=== PATIENT | female | born 2000 | race Two or more races ===

== ENCOUNTER 2020-07-08 08:19 | Outpatient (REF) | payer OTHER, SELFPAY | END 2020-07-08 08:20 | disposition home or self-care (01) | LOC: HO.LAB 08:19 | PROVIDERS: Visit Provider Internal Medicine | DX: Z20.828 Contact with and (suspected) exposure to other viral communicable diseases (principal) | CPT/HCPCS: C9803; U0003 ==

== ENCOUNTER 2021-08-04 20:32 | Emergency (ER) | payer OTHER, SELFPAY ==
[2021-08-04 21:42] VITALS: BP 138/79; PULSE 101; RESP 16; TEMP 36.8; O2SAT 99; BMI 46.3
[2021-08-04 22:01] LABS: COVID-19 Test Positive (Negative)
[2021-08-04 22:12] LABS: Appearance Urine CLEAR; Color Urine YELLOW; Glucose Urine UA NEG (NEG); Leukocyte Esterase Urine NEG (NEG); Nitrite Urine NEG (NEG); Specific Gravity - Urine >= 1.030 (1.005-1.025); UACC Culture Trigger NO; Urine Blood NEG (NEG); Urine Ketones NEG (NEG); Urine Protein 1+ MG/DL (NEG-TRACE)
[2021-08-04 22:14] LABS: UPreg QC Valid YES; Urine Pregnancy NEGATIVE (NEGATIVE)
[2021-08-04 22:22] LABS: Bacteria Urine 1+ /LPF; RBC Urine 0-2 /HPF (0); Squamous Epithelial Cell Urine 2+ /LPF; WBC Urine 0 /HPF (0-4)
--- NOTE | 2021-08-04 23:56 | ED_ITS ---
HPI - General Adult General Chief complaint: General Medical Stated complaint: Covid symptoms Time Seen by Provider: 08/04/21 23:46 Source: patient Limitations: no limitations History of Present Illness HPI narrative: this is a 21-year-old female who since yesterday has had symptoms consistent with COVID a, including headache, nasal congestion, sore throat, cough, nausea, body aches. Patient has been immunized with the Pfizer vaccine x2. She denies any shortness of breath pressures at home with her partner and child, although she is having her child stay with relative while she is sick. Patient denies any significant past medical history. She denies abdominal pain or urinary symptoms. Related Data Previous Rx's Medication Instructions Recorded ondansetron 4 mg disintegrating 4 mg PO Q6H PRN #10 tab 08/04/21 tablet Allergies Allergy/AdvReac Type Severity Reaction Status Date / Time No Known Allergies Allergy Unverified 04/22/20 19:18 [No Known Allergies*] Review of Systems Constitutional: Constitutional: Reports body ache(s), Reports chills and Reports headache(s) ENT: Reports headache(s), Reports nasal congestion and Reports sore throat Cardiovascular: Cardiovascular: Reports no additional cardiovascular complaints and Denies dyspnea Respiratory: Respiratory: Reports cough and Denies dyspnea Gastrointestinal: Gastrointestinal: Denies diarrhea, Reports nausea and Denies vomiting Genitourinary: Genitourinary: Reports no additional female genitourinary complaints Musculoskeletal: Musculoskeletal: Reports myalgias Neurologic: Reports headache(s) and Denies Sensory deficit (Neuro) [facility] Past Medical History Medical History (Updated 08/04/21 @ 23:56 by Ken Verdugo MD) Anemia PCOS (polycystic ovarian syndrome) Social History Social History Advance Directives: No Physical Exam Vital Signs: Vital Signs: Last Vital Signs Temp 98.2 F 08/04/21 21:42 Pulse 101 H 08/04/21 21:42 Resp 16 08/04/21 21:42 BP 138/79 08/04/21 21:42 Pulse Ox 99 08/04/21 21:42 BMI result Body Mass Index 46.3 Const: General: cooperative, no acute distress and alert Orientation/consciousness: patient oriented x3 HENMT: Head: Yes normal to inspection Eyes: General: appearance normal, both eyes and all related structures Eyelids: Yes eyelids normal Conjunctivae: conjunctivae normal Pupils: Equal, round and reactive pupils present Neck: Neck: Yes normal visual inspection and Yes supple Chest: Chest palpation & inspection: normal inspection of the chest Resp: Effort & Inspection: normal respiratory effort Auscultation: clear to auscultation bilaterally Cardio: Rate: regular rate Rhythm: regular rhythm Heart sounds: S1 normal heart sound present, S2 normal heart sound present, no gallops, no m urmurs and no rubs GI: Palpation (GI): Soft to palpation, nontender and Other GI palpation findings present (Non-distended) Auscultation: normal bowel sounds Skin: General skin exam: no rashes or lesions noted Neuro: General: patient oriented x3, no focal motor deficits and CN's II-XI intact bilaterally Cranial nerves: Yes Equal, round and reactive pupils present Cognition (Neuro): normal cognition Motor exam (neuro): 5/5 motor strength present throughout Sensory Exam: No Sensory deficit (Neuro) Extrem: General: Yes normal to inspection and Yes no pedal edema Psych: Appearance: grossly normal Affect: normal affect Medical Decision Making [facility] Narrative Medical decision making narrative: Patient with COVID symptoms, is COVID positive. Patient not ill-appearing. Pulse oximetry normal. Patient moderately obese but has had to Pfizer vaccinations, which hopefully will attenuate the severity of her illness. Lab Data Lab results reviewed: Yes I reviewed the patient's lab results. Labs: Lab Results 08/04/21 08/04/21 08/04/21 Range/Units 21:49 22:04 22:04 Urine Color YELLOW Urine Appearance CLEAR Urine pH 6.0 (5.0-8.0) Ur Specific [place] >= 1.030 H (1.005-1.025) Urine Protein 1+ H (NEG-TRACE) MG/DL Urine Glucose (UA) NEG (NEG) MG/DL Urine Ketones NEG (NEG) MG/DL Urine Blood NEG (NEG) Urine Nitrite NEG (NEG) Ur Leukocyte Esterase NEG (NEG) Urine RBC 0-2 (0) /HPF Urine WBC 0 (0-4) /HPF Ur Squamous Epith Cells 2+ /LPF Urine Bacteria 1+ /LPF Urine Test NEGATIVE (NEGATIVE) COVID-19 ([facility]) Positive A (Negative) COVID-19 Clin Com See Note Discharge Plan Discharge Clinical Impression: COVID-19 Patient Disposition: Home, Self-Care Instructions: COVID-19 (Coronavirus Disease 2019) (ED) Additional Instructions: Drink plenty of fluids. Use ondansetron as prescribed for nausea. Quarantine at home for 10 days. Have other family members tested. Return for any worsened symptoms such as increased shortness of breath, fever, generalized weakness, inability to hold down fluids. Use acetaminophen for aches or fever Prescriptions: New ondansetron 4 mg tablet,disintegrating 4 mg PO Q6H PRN (Reason: nausea and vomiting) Qty: 10 RF: 0
[2021-08-05] MEDS: Ondansetron ODT 4 MG TAB.RAPDIS TRANSLINGU (00:37)
== END 2021-08-05 00:44 | disposition home or self-care (01) ==
PROVIDERS: Emergency Provider Emergency Medicine
DX: U07.1 COVID-19 (principal); J02.9 Acute pharyngitis, unspecified; R51.9 Headache, unspecified; Z79.899 Other long term (current) drug therapy
CPT/HCPCS: 36415; 81001; 81025; 87635; 99283

== ENCOUNTER 2021-10-04 09:34 | Emergency (ER) | payer OTHER, SELFPAY ==
--- NOTE | ~2021-10-04 | CT_ITS ---
EXAMINATION: CT ABDOMEN AND PELVIS WITH CONTRAST CLINICAL INFORMATION: Abdominal pain and diarrhea COMPARISON: None TECHNIQUE: Multidetector volumetric images were obtained from the superior aspect of the liver through the pubic symphysis following administration 85 mL of Omnipaque 350 intravenous contrast. Sagittal and coronal reformatted images were obtained on the technologist's workstation. Oral contrast: Yes This CT examination was performed using dose optimization techniques as appropriate, variously including the following: *Automated exposure control *Adjustment of mA and/or kV according to patient size (this includes techniques or standardized protocols for targeted exams where dose is matched to indication/reason for exam; i.e. extremities or head) *Use of iterative reconstruction technique DLP: 1169 mGy-cm FINDINGS: LUNG BASES: The visualized lung bases are unremarkable. LIVER, GALLBLADDER, AND BILIARY TREE: The liver is low in attenuation suggestive of fatty infiltration. The liver is slightly enlarged right lobe measuring 19 cm in length. No focal hepatic lesion or biliary ductal dilatation is present. The gallbladder is unremarkable with no evidence of radiopaque gallstones, gallbladder wall thickening, or obvious pericholecystic inflammatory changes. PANCREAS: Unremarkable. SPLEEN: Unremarkable. ADRENAL GLANDS: Unremarkable. KIDNEYS AND URETERS: The kidneys are normal in size, shape, and attenuation. No hydronephrosis, hydroureter. There is high attenuation seen centrally in both kidneys probably representing excreted contrast. This lowers sensitivity for detection of a small stone. No large or obstructing stone is seen. No perinephric stranding. BLADDER: Unremarkable. GASTROINTESTINAL TRACT: There are fluid-filled loops of large bowel questionable for an ileus. The small and large bowel are otherwise unremarkable. The appendix is unremarkable. ABDOMINAL WALL: There is diastasis of the rectus muscles. There is a small supraumbilical hernia containing fat and small umbilical hernia containing fat. LYMPH NODES: There are small, small bowel mesentery lymph nodes. There are small bilateral inguinal lymph nodes. No enlarged lymph nodes are seen. VASCULAR: Unremarkable. PELVIC VISCERA: Unremarkable. OSSEOUS STRUCTURES: Unremarkable. CT/CT abdomen pelvis w con IMPRESSION: Fluid-filled colon questionable for an ileus. No evidence of colitis or diverticulitis. Slightly enlarged fatty liver. Fleischner guidelines were followed.
[2021-10-04 10:02] VITALS: BP 136/77; PULSE 101; RESP 18; TEMP 36.7; O2SAT 99; BMI 48.0
--- NOTE | 2021-10-04 10:28 | ED.NAVMDI ---
HPI - Nausea/Vomiting/Diarrhea General Chief complaint: Nausea/Vomiting/Diarrhea Stated complaint: vomiting/diarrhea Time Seen by Provider: 10/04/21 10:24 Source: patient Mode of arrival: ambulatory Limitations: no limitations History of Present Illness HPI Narrative: on and off for 2 months no precipitating events, no recent abx use did go to [place] but trip ended 4 weeks prior to her symptoms MD elicited complaint: nausea, vomiting, diarrhea and abdominal pain Onset (ago): month(s) (2) Description of vomiting: food contents and watery Description of diarrhea: watery Associated nausea: Yes Associated abdominal pain: Yes Location of pain: suprapubic Pain consistency: intermittent Severity: moderate Quality: cramping Exacerbating factors: eating Relieving factors: none Associated symptoms: loss of appetite and nausea/vomiting Related Data Previous Rx's Medication Instructions Recorded ondansetron 4 mg disintegrating 4 mg PO Q6H PRN #10 tab 08/04/21 tablet dicyclomine 20 mg tablet 20 mg PO TID PRN #30 tab 10/04/21 ondansetron 4 mg disintegrating 4 mg PO Q8H PRN #20 tab 10/04/21 tablet Allergies Allergy/AdvReac Type Severity Reaction Status Date / Time No Known Allergies Allergy Verified 10/04/21 10:01 [No Known Allergies*] Review of Systems Review of Systems: Constitutional : No Weight loss, No Fever, No Chills ENT/Mouth : No sore throat, No Rhinorrhea Eyes: No Swelling, No Redness Cardiovascular : No Chest Pain, No SOB, NoEdema Respiratory : No Cough, No Sputum, No Wheezing Gastrointestinal : Positive Nausea, Positive Vomiting, positive Diarrhea, positive abdominal Pain, No Hematochezia, No Melena Genitourinary : No Dysuria, No Urinary Frequency, No Hematuria, No Urgency Musculoskeletal : No joint pain, No Myalgias, No Joint Swelling Skin : No Skin Lesions, No rash Neuro : No Weakness, No Numbness, No Dizziness, No Headache Psych : No Anxiety/Panic, No Depression Heme/Lymph: No Bruising, No Lymphadenopathy Endocrine : No Polyuria, No Polydipsia All other systems reviewed and are negative. Gastrointestinal: Gastrointestinal: Reports nausea PMFSH Past Medical History Attestation statement: The following information was validated with the patient. Medical History (Updated 10/04/21 @ 13:08 by Dayna Troy DO) Anemia PCOS (polycystic ovarian syndrome) Surgical History (Updated 10/04/21 @ 11:06 by Dayna Troy DO) H/O dilation and curettage Social History Social History (Updated 10/04/21 @ 11:06 by Dayna Troy DO) Alcohol intake: never Patient Tobacco Use Status: Never used Tobacco Use of substances other than those prescribed or required for medical reasons: No Advance Directives: No Advance Directives Information Provided: No Physical Exam Vital Signs: Vital Signs: Last Vital Signs Temp 98.1 F 10/04/21 10:02 Pulse 66 10/04/21 12:50 Resp 14 10/04/21 12:50 BP 99/59 L 10/04/21 12:50 Pulse Ox 99 10/04/21 12:50 BMI result Body Mass Index 48.0 Appearance: Alert. Oriented X3. No acute distress. Eyes: Pupils equal, round and reactive to light. ENT: Pharynx normal. Neck: Normal inspection. Neck supple. CVS: Normal heart rate and rhythm. Pulses normal. Respiratory: No respiratory distress. Breath sounds normal. Abdomen: Soft and mild suprapubic ttp no rebound or guarding Skin: Skin warm and dry. Normal skin color. Normal skin turgor. Extremities: No lower extremity edema. No calf ttp Neuro: Oriented X 3. No motor deficit. No sensory deficit. Course Course Course Narrative: message sent to surgery regarding symptoms and CT scan findings - 1220pm - follow up with GI no further workup needed possible IBS MDM - Nausea/Vomiting/Diarrhea MDM Narrative Medical decision making narrative: 21 yo female hx of PCOS here with c/o intermittent bouts for 2 months of lower abdominal pain n/v/d no known causes at this time no recent abx did go to the [facility] but her symptoms did not start until 4 weeks later. She has no food intolerance or hx of IBD in the family. At this time will obtain labs, hydrate, CT scan for colitis. Dispo per results and findings. Lab Data Result diagrams: 10/04/21 10:33 10/04/21 10:33 Labs: Lab Results 10/04/21 10/04/21 10/04/21 Range/Units 10:06 10:33 10:33 WBC 11.3 H (4.8-10.8) X10*3/uL RBC 5.95 H (4.20-5.50) X10*6/uL Hgb 11.2 L (12.0-16.0) g/dl Hct 39.2 (37.0-47.0) % MCV 65.9 L (80.0-98.0) fL MCH 18.8 L (27.0-33.0) pg MCHC 28.6 L (31.0-35.0) g/dl RDW 20.5 H (11.0-16.0) % Plt Count 526 H (160-400) X10*3/uL MPV 9.3 L (9.4-12.3) fL Immature Gran % (Auto) 0.4 (0.0-0.4) % Neut % (Auto) 70.8 (45-73) % Lymph % (Auto) 22.8 (20-40) % [place] % (Auto) 3.3 (2-11) % Eos % (Auto) 2.1 (0-4) % Baso % (Auto) 0.6 (0-2) % Lymph # (Auto) 2.6 (1.2-4.9) X10*3/uL [place] # (Auto) 0.4 (0.1-1.2) X10*3/uL Eos # (Auto) 0.2 (0.0-0.4) X10*3/uL Baso # (Auto) 0.1 (0.0-0.2) X10*3/uL Abs Immat Gran (auto) 0.05 H (0.00-0.03) X10*3/uL Absolute Neuts (auto) 8.0 (2.0-8.3) x10*3/uL Absolute Nucleated RBC 0.000 (0.0-0.012) X10*3/uL Nucleated RBC % (auto) 0.0 (0.0-0.2) /100WBC Sodium 137 (135-145) mmol/L Potassium 4.9 (3.3-5.1) mmol/L Chloride 106 (96-108) mmol/L Carbon Dioxide 22 (22-29) mmol/L Anion Gap 14 (12-20) BUN 10 (9-16) mg/dL Creatinine 0.85 (0.5-1.4) mg/dL Estim Creat Clear Calc 135.8 Estimated GFR > 60 Random Glucose 97 (60-115) mg/dL Calcium 10.1 (8.4-10.2) mg/dL Total Bilirubin 0.4 (0.0-1.0) mg/dL AST 29 (5-31) U/L ALT 33 H (0-31) U/L Alkaline Phosphatase 72 (39-117) U/L Total Protein 8.0 (6.5-8.0) g/dL Albumin 4.6 (3.5-5.0) g/dL Urine Color Urine Appearance Urine pH (5.0-8.0) Ur Specific [place] (1.005-1.025) Urine Protein (NEG-TRACE) MG/DL Urine Glucose (UA) (NEG) MG/DL Urine Ketones (NEG) MG/DL Urine Blood (NEG) Urine Nitrite (NEG) Ur Leukocyte Esterase (NEG) Urine Test (NEGATIVE) COVID-19 ([facility]) Negative (Negative) COVID-19 Clin Com See Note 10/04/21 10/04/21 Range/Units 10:33 10:33 WBC (4.8-10.8) X10*3/uL RBC (4.20-5.50) X10*6/uL Hgb (12.0-16.0) g/dl Hct (37.0-47.0) % MCV (80.0-98.0) fL MCH (27.0-33.0) pg MCHC (31.0-35.0) g/dl RDW (11.0-16.0) % Plt Count (160-400) X10*3/uL MPV (9.4-12.3) fL Immature Gran % (Auto) (0.0-0.4) % Neut % (Auto) (45-73) % Lymph % (Auto) (20-40) % [place] % (Auto) (2-11) % Eos % (Auto) (0-4) % Baso % (Auto) (0-2) % Lymph # (Auto) (1.2-4.9) X10*3/uL [place] # (Auto) (0.1-1.2) X10*3/uL Eos # (Auto) (0.0-0.4) X10*3/uL Baso # (Auto) (0.0-0.2) X10*3/uL Abs Immat Gran (auto) (0.00-0.03) X10*3/uL Absolute Neuts (auto) (2.0-8.3) x10*3/uL Absolute Nucleated RBC (0.0-0.012) X10*3/uL Nucleated RBC % (auto) (0.0-0.2) /100WBC Sodium (135-145) mmol/L Potassium (3.3-5.1) mmol/L Chloride (96-108) mmol/L Carbon Dioxide (22-29) mmol/L Anion Gap (12-20) BUN (9-16) mg/dL Creatinine (0.5-1.4) mg/dL Estim Creat Clear Calc Estimated GFR Random Glucose (60-115) mg/dL Calcium (8.4-10.2) mg/dL Total Bilirubin (0.0-1.0) mg/dL AST (5-31) U/L ALT (0-31) U/L Alkaline Phosphatase (39-117) U/L Total Protein (6.5-8.0) g/dL Albumin (3.5-5.0) g/dL Urine Color YELLOW Urine Appearance TURBID Urine pH 5.5 (5.0-8.0) Ur Specific [place] >= 1.030 H (1.005-1.025) Urine Protein NEG (NEG-TRACE) MG/DL Urine Glucose (UA) NEG (NEG) MG/DL Urine Ketones NEG (NEG) MG/DL Urine Blood NEG (NEG) Urine Nitrite NEG (NEG) Ur Leukocyte Esterase NEG (NEG) Urine Test NEGATIVE (NEGATIVE) COVID-19 ([facility]) (Negative) COVID-19 Clin Com Discharge Plan Discharge Clinical Impression: Vomiting Qualifiers: Vomiting type: unspecified Nausea presence: with nausea Qualified Code(s): R11.2 - Nausea with vomiting, unspecified Diarrhea Qualifiers: Diarrhea type: unspecified type Qualified Code(s): R19.7 - Diarrhea, unspecified Patient Disposition: Home, Self-Care Instructions: Acute Nausea and Vomiting (ED), Acute Diarrhea (ED) Additional Instructions: return to ED for any worsening symptoms or concerns Prescriptions: New ondansetron 4 mg tablet,disintegrating 4 mg PO Q8H PRN (Reason: nausea and vomiting) Qty: 20 0RF dicyclomine 20 mg tablet 20 mg PO TID PRN (Reason: abdominal discomfort) Qty: 30 0RF No Action ondansetron 4 mg tablet,disintegrating 4 mg PO Q6H PRN (Reason: nausea and vomiting) Qty: 10 0RF Referrals: Be Isbell MD [Physician] - 1 week Stand Alone Forms: Work/School Release
[2021-10-04 10:33] LABS: COVID-19 Test Negative (Negative); IDNOW Serial# 55D5AD1C
[2021-10-04] MEDS: 0.9 % Sodium Chloride 1,000 ML 999 ML IV (10:35)
[2021-10-04 10:39] LABS: MANUAL DIFF FLAG NO
[2021-10-04 10:40] LABS: Basophils Absolute Auto 0.1 X10*3/uL (0.0-0.2); Basophils Percent Auto 0.6 % (0-2); Eosinophils Absolute Auto 0.2 X10*3/uL (0.0-0.4); Eosinophils Percent Auto 2.1 % (0-4); Hematocrit 39.2 % (37.0-47.0); Hemoglobin 11.2 g/dl (12.0-16.0); Imm Gran Abs Auto 0.05 X10*3/uL (0.00-0.03); Imm Gran Pct Auto 0.4 % (0.0-0.4); Lymphocytes Absolute Auto 2.6 X10*3/uL (1.2-4.9); Lymphocytes Percent Auto 22.8 % (20-40); Mean Corpuscular HGB Conc 28.6 g/dl (31.0-35.0); Mean Corpuscular Hemoglobin 18.8 pg (27.0-33.0); Mean Corpuscular Volume 65.9 fL (80.0-98.0); Mean Platelet Volume 9.3 fL (9.4-12.3); Monocytes Absolute Auto 0.4 X10*3/uL (0.1-1.2); Monocytes Percent Auto 3.3 % (2-11); Neutrophils Percent Auto 70.8 % (45-73); Platelet Count 526 X10*3/uL (160-400); Red Blood Count 5.95 X10*6/uL (4.20-5.50); Red Cell Distribution Width 20.5 % (11.0-16.0); White Blood Count 11.3 X10*3/uL (4.8-10.8)
[2021-10-04 10:41] LABS: UPreg QC Valid YES
[2021-10-04 10:42] LABS: Urine Pregnancy NEGATIVE (NEGATIVE)
[2021-10-04] MEDS: ondansetron HCL 4 MG/2 ML VIAL IVPUSH (10:50)
[2021-10-04] MEDS: Ketorolac Tromethamine 30 MG/ML VIAL IVPUSH (10:52)
[2021-10-04 11:00] LABS: Alanine Aminotransferase 33 U/L (0-31); Albumin Level 4.6 g/dL (3.5-5.0); Alkaline Phosphatase 72 U/L (39-117); Anion Gap 14 (12-20); Aspartate Amino Transferase 29 U/L (5-31); Bilirubin Total 0.4 mg/dL (0.0-1.0); Blood Urea Nitrogen 10 mg/dL (9-16); Calcium 10.1 mg/dL (8.4-10.2); Carbon Dioxide 22 mmol/L (22-29); Chloride 106 mmol/L (96-108); Creatinine Clr Calc Pharmacy 135.8; Estimated Glomerular Filt Rate > 60; Glucose Random 97 mg/dL (60-115); Potassium 4.9 mmol/L (3.3-5.1); Sodium 137 mmol/L (135-145)
[2021-10-04] MEDS: iohexoL 350 MG/ML 100 ML INFUS..BTL 85 ML IV (11:22)
[2021-10-04 12:04] LABS: Appearance Urine TURBID; Color Urine YELLOW; Glucose Urine UA NEG (NEG); Leukocyte Esterase Urine NEG (NEG); Nitrite Urine NEG (NEG); PH 5.5 (5.0-8.0); Specific Gravity - Urine >= 1.030 (1.005-1.025); Urine Blood NEG (NEG); Urine Ketones NEG (NEG); Urine Protein NEG (NEG-TRACE)
[2021-10-04 12:50] VITALS: BP 99/59; PULSE 66; RESP 14; O2SAT 99
== END 2021-10-04 13:29 | disposition home or self-care (01) ==
PROVIDERS: Emergency Provider Emergency Medicine
DX: R11.2 Nausea with vomiting, unspecified (principal); R19.7 Diarrhea, unspecified; Z79.899 Other long term (current) drug therapy; Z20.822 Contact with and (suspected) exposure to COVID-19
CPT/HCPCS: 74177; 80053; 81003; 81025; 85025; 87635; 96361; 96374; 96375; 99284; J1885; J2405; Q9967

== ENCOUNTER 2023-03-01 21:45 | Emergency (ER) | payer OTHER, SELFPAY ==
[2023-03-01 22:06] VITALS: BP 139/71; PULSE 110; RESP 18; TEMP 36.4; O2SAT 97; BMI 42.9
--- NOTE | 2023-03-02 00:03 | ED_ITS ---
HPI - Skin/Abscess/Foreign Bdy General Chief complaint: Skin/Abscess/Foreign Body Stated complaint: Hives Time Seen by Provider: 03/01/23 23:59 Source: patient Mode of arrival: ambulatory Limitations: no limitations History of Present Illness HPI narrative: patient comes to the emergency room complaining of an itchy rash. Patient states that for about a month, at night, usually she gets hives and they are very itchy. Patient states that the hives may happen also throughout the day. Patient may also have rash and during the night. Patient states that the only think that she can think of that is new is her IUD. Patient states that sometimes she runs her fingers over her skin, then the rash appears in the same pattern. Patient denies any any wheezing or shortness of breath, denies Angioedema symptoms. Related Data Previous Rx's Medication Instructions Recorded ondansetron 4 mg disintegrating 4 mg PO Q6H PRN nausea and 08/04/21 tablet vomiting #10 tabs dicyclomine 20 mg tablet 20 mg PO TID PRN abdominal 10/04/21 discomfort #30 tabs ondansetron 4 mg disintegrating 4 mg PO Q8H PRN nausea and 10/04/21 tablet vomiting #20 tabs famotidine 40 mg tablet (Pepcid) 40 mg PO DAILY #3 tabs 03/02/23 hydroxyzine HCl 25 mg tablet 25 mg PO BID PRN itching #7 tabs 03/02/23 prednisone 50 mg tablet 50 mg PO DAILY #3 tabs 03/02/23 Allergies Allergy/AdvReac Type Severity Reaction Status Date / Time No Known Allergies Allergy Verified 03/01/23 22:05 [No Known Allergies*] Review of Systems Review of Systems: Constitutional : No Weight loss, No Fever, No Chills, No Night Sweats, No Fatigue, No Malaise ENT/Mouth : No Hearing loss, No Ear Pain, No Nasal Congestion, No Sinus Pain, No Hoarseness, No sore throat, No Rhinorrhea, No Swallowing Difficulty Eyes: No Eye Pain, No Swelling, No Redness, No Foreign Body, No Discharge, No Vision Changes Cardiovascular : No Chest Pain, No SOB, No Dyspnea on Exertion, No Orthopnea, No Edema, No Palpitations Respiratory : No Cough, No Sputum, No Wheezing, No Smoke Exposure, No Dyspnea Gastrointestinal : No Nausea, No Vomiting, No Diarrhea, No Constipation, No abdominal Pain, No Hematochezia, No Melena Genitourinary : no irregular bleeding, No Dysuria, No Urinary Frequency, No Hematuria, No Urinary Incontinence, No Urgency, No Flank Pain, No Urinary Flow Changes, No Hesitancy Musculoskeletal : No joint pain, No Myalgias, No Joint Swelling Skin : complaining of hives Neuro : No Weakness, No Numbness, No Paresthesias, No Loss of Consciousness, No Dizziness, No Headache Psych : No Anxiety/Panic, No Depression, No SI/HI/AH/VH, No Social Issues, Heme/Lymph: No Bruising, No Bleeding,No Lymphadenopathy Endocrine : No Polyuria, No Polydipsia, No Temperature Intolerance [facility] Past Medical History Medical History Anemia PCOS (polycystic ovarian syndrome) Surgical History H/O dilation and curettage Social History Social History (Updated 10/04/21 @ 11:06 by Oanh Troy DO) Alcohol intake: never Patient Tobacco Use Status: Never used Tobacco Physical Exam Vital Signs: Vital Signs: Last Vital Signs Temp 97.6 F 03/01/23 22:06 Pulse 110 H 03/01/23 22:06 Resp 18 03/01/23 22:06 BP 139/71 03/01/23 22:06 Pulse Ox 97 03/01/23 22:06 O2 Del Method Room Air 03/01/23 22:06 BMI result Body Mass Index 42.9 Const: Other: Appearance: Alert. Oriented X3. No acute distress. Eyes: Pupils equal, round and reactive to light. ENT: Pharynx normal. Neck: Normal inspection. Neck supple. No lymph nodes noted. No crepitus CVS: Normal heart rate and rhythm. Pulses normal. Normal S1 and S2 Respiratory: No respiratory distress. Breath sounds normal. No Wheezing. No rales Abdomen: Soft and nontender. No rigidity. No distention. Skin: hives in forearms, worse where she has been scratching Extremities: No lower extremity edema. No Lacerations. No Rash Neuro: Oriented X 3. No motor deficit. No sensory deficit. Moving all extremities. No slurred speech. CN 2 through 12 grossly intact Psych: calm, cooperative, normal affect Medical Decision Making Medical Decision Making MDM Narrative: - the only thing that is new for the patient is her IUD, since then she has been having - hives I discussed with the patient to contact her OB Gyne, it may be worth exploring it if the IUD needs to be removed. - Patient given p.o. diphenhydramine, famotidine and prednisone Differential Diagnosis Differential Diagnoses: The differential diagnosis associated with the presentation includes ( contact dermatitis, dermatographia, urticaria, allergic reaction) Discharge Plan Discharge Clinical Impression: Urticaria Patient Disposition: Home, Self-Care Instructions: Urticaria (ED), Cold Compress or Soak (ED) Additional Instructions: Please follow-up with your primary care physician tomorrow. If you have any worsening or new symptoms, please return to the emergency room or call 911 Prescriptions: New prednisone 50 mg tablet 50 mg PO DAILY Qty: 3 0RF famotidine [Pepcid] 40 mg tablet 40 mg PO DAILY Qty: 3 0RF hydroxyzine HCl 25 mg tablet 25 mg PO BID PRN (Reason: itching) Qty: 7 0RF No Action ondansetron 4 mg tablet,disintegrating 4 mg PO Q8H PRN (Reason: nausea and vomiting) Qty: 20 0RF dicyclomine 20 mg tablet 20 mg PO TID PRN (Reason: abdominal discomfort) Qty: 30 0RF ondansetron 4 mg tablet,disintegrating 4 mg PO Q6H PRN (Reason: nausea and vomiting) Qty: 10 0RF
[2023-03-02] MEDS: Famotidine 20 MG TABLET PO (00:30)
[2023-03-02] MEDS: diphenhydrAMINE HCL 25 MG CAPSULE 50 MG PO (00:30)
[2023-03-02] MEDS: predniSONE 20 MG TABLET 60 MG PO (00:31)
== END 2023-03-02 00:35 | disposition home or self-care (01) ==
PROVIDERS: Emergency Provider Emergency Medicine
DX: L50.0 Allergic urticaria (principal)
CPT/HCPCS: 99282; 99283

== ENCOUNTER 2023-12-27 10:58 | Outpatient (REF) | payer OTHER, SELFPAY ==
[2023-12-27 11:52] LABS: MANUAL DIFF FLAG NO
[2023-12-27 12:27] LABS: Basophils Absolute Auto 0.1 X10*3/uL (0.0-0.2); Basophils Percent Auto 0.9 % (0-2); Eosinophils Absolute Auto 0.1 X10*3/uL (0.0-0.4); Eosinophils Percent Auto 1.3 % (0-4); Hematocrit 39.8 % (37.0-47.0); Hemoglobin 12.4 g/dl (12.0-16.0); Imm Gran Abs Auto 0.03 X10*3/uL (0.00-0.03); Imm Gran Pct Auto 0.4 % (0.0-0.4); Lymphocytes Absolute Auto 2.3 X10*3/uL (1.2-4.9); Lymphocytes Percent Auto 26.7 % (20-40); Mean Corpuscular HGB Conc 31.2 g/dl (31.0-35.0); Mean Corpuscular Hemoglobin 23.5 pg (27.0-33.0); Mean Corpuscular Volume 75.5 fL (80.0-98.0); Mean Platelet Volume 9.6 fL (9.4-12.3); Monocytes Absolute Auto 0.4 X10*3/uL (0.1-1.2); Monocytes Percent Auto 4.3 % (2-11); Neutrophils Absolute Auto 5.7 x10*3/uL (2.0-8.3); Neutrophils Percent Auto 66.4 % (45-73); Platelet Count 394 X10*3/uL (160-400); Red Blood Count 5.27 X10*6/uL (4.20-5.50); White Blood Count 8.5 X10*3/uL (4.8-10.8)
[2023-12-27 13:02] LABS: Alanine Aminotransferase 31 U/L (0-31); Albumin Level 4.4 g/dL (3.5-5.0); Alkaline Phosphatase 65 U/L (39-117); Anion Gap 13 (12-20); Aspartate Amino Transferase 29 U/L (5-31); Bilirubin Total 0.5 mg/dL (0.0-1.0); Blood Urea Nitrogen 11 mg/dL (9-16); Calcium 9.7 mg/dL (8.4-10.2); Carbon Dioxide 25 mmol/L (22-29); Chloride 106 mmol/L (96-108); Estimated Glomerular Filt Rate > 60; Glucose Random 81 mg/dL (60-115); Sodium 140 mmol/L (135-145); Total Protein 7.8 g/dL (6.5-8.0)
[2023-12-27 13:10] LABS: Erythrocyte Sedimentation Rate 17 MM/HR (0-20)
[2023-12-27 13:19] LABS: Thyroid Stimulating Hormone 3.67 uIU/mL (0.32-4.0)
[2023-12-28 11:43] LABS: Lyme Abs Screen <0.90 index
[2023-12-28 12:58] LABS: Thyroglobulin Antibodies <1 IU/mL (< or = 1); Thyroid Peroxidase Antibodies 1 IU/mL (<9)
[2023-12-28 22:28] LABS: Prot Elec - Albumin 4.1 g/dL (3.8-4.8); Prot Elec - Alpha1 0.4 g/dL (0.2-0.3); Prot Elec - Alpha2 0.9 g/dL (0.5-0.9); Prot Elec - Beta 1 0.6 g/dL (0.4-0.6); Prot Elec - Beta 2 0.4 g/dL (0.2-0.5); Prot Elec - Gamma 1.1 g/dL (0.8-1.7); Prot Elec - Total Protein 7.4 g/dL (6.1-8.1)
[2024-01-16 15:23] LABS: Histamine Release <16 % (<16); TSH 4.91 mIU/L (0.40-4.50); Thyroglobulin Abs <1 IU/mL (< OR = 1)
== END 2023-12-27 10:59 | disposition home or self-care (01) ==
LOC: HO.LAB 10:58
PROVIDERS: Visit Provider Allergy & Immunology
DX: L50.9 Urticaria, unspecified (principal); E03.9 Hypothyroidism, unspecified; R53.83 Other fatigue
CPT/HCPCS: 36415; 80053; 83520; 84165; 84443; 85025; 85652; 86343; 86376; 86617; 86618; 86800

== ENCOUNTER 2025-06-14 18:24 | Emergency (ER) | payer OTHER, SELFPAY ==
--- OUTSIDE RECORDS SUMMARY | 2025-06-10 10:00 | XMS_ITS | Encounter Summary ---
Author Organization [employer] Address [address] [facility] [address] [place] [address] Care Team Providers Care Solderer Assembler Name Role Phone Unavailable Primary Care Provider Unavailabl e Reason for Visit * Reason Comments Extraction Ext on tooth# 4 Encounter Details Date Type Department Care Team (Late st Contact Info) Description 06/10/2025 10:00 AM EST Office Visit [facility] [address], [place] [phone] Ghassan Jolley DDS [address], [place] [phone] Dental abscess (Primary Dx); Hypercementosis Social History Tobacco Use Types Packs/Day Years Used Date Smoking Tobacco: Never Smokeless Tobacco: Never Alcohol Use Standard Drinks/Week Comments Not Currently 0 (1 standard drink = 0.6 oz pur e alcohol) Comments Unknown Sex and Gender Information Value Date Recorded Sex Assigned at Female 02/09/2023 8:16 AM EDT Legal Sex Female 8:09 AM EDT Gender Identity Female 02/09/2023 8:16 AM EDT Sexual Orientation Don't know 02/09/2023 8: 16 AM EDT documented as of this encounter Last Filed Vital Signs Vital Sign Reading Time Taken Comments Blood Pressure 122/76 06/10/2025 9:37 AM EST Pulse 68 06/10/2025 9:37 AM EST Temperature - - Respiratory Rate - - Oxygen Saturation - - Inhaled Oxygen Concentration - - Weight - - Height - - Body Mass Index - - documented in this encounter Progress Notes * Ghassan Jolley DDS - 06/10/2025 10:00 AM EST Patient ID: Kiran Sneed is a 25 y.o. female. Time Out: Timeout Date: 06/10/25, Timeout Time: 933 (ext on tooth#4) Location: [facility] Tooth: Maxilla and #4 Procedure: Extraction Verified the above with patient, rn first assistant, and provider. Confirmed via patient's chart, intraorally and by radiographs. Photoengraving Etcher Apprentice: not applicable Chief Complaint Patient presents with Extraction Ext on tooth# 4 Medical Hx: Vitals: Blood pressure 122/76, pulse 68. Medical History[1] Medications: Encounter Medications[2] Consent Obtained: The risks, benefits, indications, potential complications, and alternatives were explained to the patient and informed consent was obtained with good understanding. Treatment Provided: Dental procedures in this visit D7210 - EXTRACTION, ERUPTED TOOTH REQ REMOVAL OF BONE AND/OR SECTIONING OF TOOTH 4 (Completed) Service provider: Ghassan Jolley DDS Billing provider: Ghassan Jolley DDS [id number] - CASE PRESENTATION, DETAILED AND EXTENSIVE TREATMENT PLANNING (Completed) Service provider: Ghassan Jolley DDS Billing provider: Ghassan Jolley DDS Diagnosis: Dental abscess, hypercementosis Topical: 20% Benzocaine Anesthesia: 2% Lidocaine (Xylocaine) w/ 1:100,000 epinephrine Number of Cartridges: 1 Injection Type: Buccal infiltration, Palatal infiltration, and Intrapapillary injection Confirmed profound anesthesia. Pharyngeal curtain and bite block placed. Removed tooth with elevators and forceps. Apices intact. Surgical Extraction: Yes, sectioned tooth with surgical handpiece and bur 151 L . Difficult extraction Socket curetted & irrigated with sterile water. Compressed alveolar bone. Sutures: Chromic Gut All adjacent teeth intact. Hemostasis achieved. Complications: None. Pt tolerated procedure well. Yarilis states having analgesics at home. Written and verbal post-op instructions given. Patient discharged in stable condition; ambulatory, alert, and oriented. NV: F/U as needed / referred Telehealth Coordinator: Ely Escalante Dentist: Ghassan Jolley DDS [1] Past Medical History: Diagnosis Date Disease of thyroid gland [2] Outpatient Encounter Medications as of 06/10/2025 Medication Sig Dispense Refill acetaminophen (Tylenol 8 Hour) 650 MG ER tablet Take 1 tablet (650 mg) by mouth every 8 (eight) hours if needed for mild pain. Do not crush, chew, or split. (Patient not taking: Reported on 06/10/2025) 30 tablet 0 hydrOXYzine HCl (Atarax) 25 MG tablet Take 25 mg by mouth at bedtime. (Patient not taking: Reportedon 06/10/2025) levothyroxine (Synthroid, Levoxyl) 100 MCG tablet Take 100 mcg by mouth in the morning. (Patient not taking: Reported on 06/10/2025) levothyroxine (Synthroid, Levoxyl) 50 MCG tablet Take 50 mcg by mouth in the morning. (Patient not taking: Reported on 06/10/2025) No facility-administered encounter medications on file as of 06/10/2025. documented in this encounter Plan of Treatment Upcoming Encounters Date Type Department Care Team (Late st Contact Info) Description 07/22/2025 8:00 AM EST Office Visit [facility] [address] [place] [address] Ghassan Jolley DDS [address] [place] [address] 10/02/2025 2:15 PM EST Office Visit [facility] [address] [place] [address] Maylin Dow [address] [place] [address] documented as of this encounter Procedures Procedure Name Priority Date/Time Associated Diagnosis Comments 4 EXTRACTION, ERUPTED TOOTH REQ REMOVAL OF BONE AND/OR SECTIONING OF TOOTH Routine 06/10/2025 10:00 AM EST CASE PRESENTATION, DETAILED AND EXTENSIVE TREATMENT PLANNING Routine 06/10/2025 10:00 AM EST documented in this encounter Visit Diagnoses Diagnosis Dental abscess- Primary Periapical abscess without sinus Hypercementosis documented in this encounter
[2025-06-14 18:35] VITALS: BP 126/68; PULSE 80; RESP 18; TEMP 36.6; O2SAT 98; BMI 48.1
--- OUTSIDE RECORDS SUMMARY | 2025-06-14 19:47 | XMS_ITS | Encounter Summary ---
Author Organization [facility] Address [address] [place] [address] Support Name Relationship Address Phone Lynne Doll Mother [address] [place] [address] Care Team Providers Care Dairy Supplies Sales Representative Name Role Phone Valentina George MD Primary Care Provider [phone] Encounter Details Date Type Department Care Team (Late st Contact Info) Description 05/20/2025 Results Follow-Up Adult Medicine [facility] [address], [place] [phone] Earl Matamoros NP [address], [place] Social History Tobacco Use Types Packs/Day Years Used Date Smoking Tobacco: Never Smokeless Tobacco: Never Alcohol Use Standard Drinks/Week Comments Not Currently 0 (1 standard drink = 0.6 oz pur e alcohol) Housing Instability Answer Date Recorde d Are you worried that in the next 2 months you may not have stable housing? No 05/20/2025 Food Access & Nutrition Answer Date Rec orded Do you have access to a vari ety of food including fruits and vegetables? Yes 05/20/2025 Access to Healthcare Answer Date Record ed Within the last 3 months, ho w many times did you visit the emergency department for your medical care? 0 05/20/2025 Health Literacy Answer Date Recorded How often do you need to hav e someone help you when you read instructions, pamphlets, or other written material from your doctor or pharmacy? Never 05/20/2025 Caregiver: How often do you need to have someone help you when you read instructions, pamphlets, or other written material from your doctor or pharmacy? Not on file 05/20/2025 Financial Risk Answer Date Recorded How hard is it for you to pa y for the very basics like food, housing, medical care, and air conditioning / heating? Not very hard 05/20/2025 Transportation Answer Date Recorded Has the lack of transportati on kept you from meetings, work, or from getting things needed for daily living? No Has the lack of transportati on kept you from medical appointments or from getting medications? No 05/20/2025 Social Isolation Answer Date Recorded How often do you feel lonely or isolated from th ose around you? Never 05/20/2025 Food Risk Answer Date Recorded Within the past 12 months we worried whether our food would run out before we got money to buy more. Never true 05/20/2025 Within the past 12 months th e food we bought just didn't last and we didn't have money to get more. Never true 05/20/2025 Dependent Care Answer Date Recorded Do you need help finding or paying for care for your loved ones. For example, early childhood associate teacher or elderly care for an older adult? No 05/20/2025 Education Answer Date Recorded Do you think completing more education or training, like finishing a GED, going to college, or learning a trade, would be helpful for you? No 05/20/2025 Employment and Income Answer Date Recor ded During the last four weeks, have you been actively looking for work? No 05/20/2025 Living Situation Answer Date Recorded What is your living situation? Unrecognized valu e 05/20/2025 Comments Unknown Sex and Gender Information Value Date Recorded Sex Assigned at Not on file Legal Sex Female 1:59 PM EST Gender Identity Not on file Sexual Orientation Not on file documented as of this encounter Plan of Treatment Upcoming Encounters Date Type Department Care Team (Late st Contact Info) Description 12/08/2025 3:20 PM EDT Consult Gastroenterology - [address] [facility] [address] [place] [phone] Liz Rodas PA [address] [facility] [address] [place] [address] documented as of this encounter Visit Diagnoses Not on filedocumented in this encounter Additional Health Concerns Assessment Noted Time PHQ-9 Depression Total Score: 0 10/08/19 25 3:00 PM EST documented as of this encounter Care Teams Dairy Supplies Sales Representative Relationship Specialty Start Date End Date Valentina George MD [address] [place] [address] PCP - General Internal Medicine 09/19/21 documented as of this encounter
--- OUTSIDE RECORDS SUMMARY | 2025-06-14 19:48 | XMS_ITS | Clinical Summary ---
Author Organization [facility] Address [address] [place] [address] Phone Support Name Relationship Address Phone Lynne Doll Mother [address] [place] [address] Care Team Providers Care Recreational Facilities Motel Manager Name Role Phone Valentina George MD Primary Care Provider [phone] Allergies No known active allergies Medications polyethylene glycol (MIRALAX) 17 gram packet Take 17 g by mouth 1 (one) time each day. 510 g 5 5 Active senna-docusate (PERICOLACE) 8.6-50 mg per tablet Take 1 tablet by mouth 1 (one) time each day. 30 each 11 5 05/20/20 26 Active cholecalcifero l (Vitamin D3) 50 mcg (2,000 unit) capsuleIndicat ions:vitamin D deficiency Take 1 capsule (2,000 Units total) by mouth 1 (one) time each day. 90 capsule 1 5 05/20/20 25 Discontinued Active Problems Problem Noted Date Diagnosed Date Hypothyroidism 10/01/2024 Assessment & Plan (10/07/2024 3:51 PM EST): Patient states she has been off levothyroxine for months. Last TSH level was slightly elevated. Patient is to recheck TSH in 6 to 8 weeks. If thyroid levels continue to be elevated or trending up I will restart levothyroxine. Orders: tirzepatide, weight loss, (Zepbound) 2.5 mg/0.5 mL solution; Inject 2.5 mg under the skin every 7 (seven) days. Assessment & Plan (10/01/2024 6:53 PM EST): TSH ordered to reevaluate levels. Patient has not been taking levothyroxine 50 mcg daily. It is unclear why. If TSH is elevated I will encourage patient to restart levothyroxine. Orders: Thyroid stimulating hormone with reflex to free t4 and free t3; Future PCOS (polycystic ovarian syndrome) 10/01/2024 Assessment & Plan (10/07/2024 3:51 PM EST): Discussed risk factors of PCOS. Orders: tirzepatide, weight loss, (Zepbound) 2.5 mg/0.5 mL solution; Inject 2.5 mg under the skin every 7 (seven) days. Assessment & Plan (10/01/2024 6:53 PM EST): Patient reports she has a history of PCOS. We discussed the risk factors of PCOS included but not limited to increased weight and diabetes. Patient would actively like to manage weight to decrease the risks of diabetes with with GLP's. Patient will be contacting insurance company to see if they cover GLP for weight loss. Orders: Lipid panel with reflex to direct LDL; Future Thyroid stimulating hormone with reflex to free t4 and free t3; Future Hemoglobin A1c; Future Pure hypercholesterolemia 10/01/2024 Assessment & Plan (10/07/2024 3:51 PM EST): Last LDL 94. Triglyceride 225. cardiovascular risk and specific lipid/LDL goals reiterated. Elevation in your triglycerides can contribute to causing other complications such as Fatty Liver or Pancreatis. A normal Triglycerides is less than 150. Please decrease carbs and fatty foods, increase exercise and some modest weight loss can be helpful. Orders: tirzepatide, weight loss, (Zepbound) 2.5 mg/0.5 mL solution; Inject 2.5 mg under the skin every 7 (seven) days. Assessment & Plan (10/01/2024 6:53 PM EST): Last LDL 113. Cardiovascular risk and specific lipid/LDL goals reviewed. I discussed in context of patient risks of coronary artery disease which is associated with total cholesterol, high LDL and low HDL cholesterol. It was also discussed in the context of patient's family history CAD and IL. I discussed Current concept linking hypercholesteremia with occlusive vascular disease. I will recheck Lipid profile today Lifestyle modification was discussed. I recommend exercise 3-4 times per week on average 30 minutes each at moderate to vigorous intensity. Dietary change include: Incorporation of fruits and vegetable whole-grain low-fat dairy products, poultry, fish and legumes. limitation of sugar sweetened beverage other sweets and red meats. Reduce calorie from saturated and trans fat. Orders: Lipid panel with reflex to direct LDL; Future Thyroid stimulating hormone with reflex to free t4 and free t3; Future Hemoglobin A1c; Future Class 3 severe obesity with body mass index (BMI) of 45.0 to 49.9 in adult ([facility] V24, [facility] V28) 10/01/2024 Assessment & Plan (10/07/2024 3:51 PM EST): Patient present for weight management/weight loss discussed. I reviewed current disease states and risks associated with them. Patient's comorbidities, labs, and goals, indicates that Tirzepatide/Zepbound 2.5mg Subq once weekly x 4 weeks is the best option to trial for weight loss. A review of signs and symptoms associated with medications and disease state discussed with patient. Risk of Thyroid C-Cell Tumors discussed with patient and patient is a wear that Tirzepatide Zepbound is contraindicated in patients with a personal or family history of MTC or in patients with MEN 2. A review of labs, goals and laboratory values was discussed with the patient. . Patient is not due for updated lab. But she will repeat TSH level in 6-8 weeks. If still elevated at that time we will restart levothyroxine. Diet Recommendation: Patient is to increase protein intake (120 g/day) to minimize muscle loss side effects related to GLP-1's. Patient is maintain a low carb diet. Patient is counseled about low calorie diet (avoid sweet drinks/snacks, and replace red meat with chicken and fish and increase salad intake). I also recommend patient start daily Metamucil to minimize the constipation that is related to GLP-1's medication and also help with fiber intake and blood sugar control. Activity/Exercise Recommendation: Patient is to attempt exercise daily or at least 3 times a week for 30 min. She able to set aside 2 days of the week for strength exercise (weight lifting) to minimize the side effects of muscle loss related to GLP-1's. Patient is to return to clinic 6 weeks follow up appointment Instructions on when to contact the clinic in the event of an adverse drug reaction, questions or concerns. Reviewed all medication indications and the importance of adherence. In the event of an emergency, patient instructed to seek immediate medical attention. Orders: tirzepatide, weight loss, (Zepbound) 2.5 mg/0.5 mL solution; Inject 2.5 mg under the skin every 7 (seven) days. Assessment & Plan (10/01/2024 6:53 PM EST): Patient present concern ongoing weight increase. Patient states she has been struggling with her weight for many years. She does have a relevant past medical history of hypothyroidism and PCOS. Patient is interested in pharmaceutical weight management. She is currently followed by weight management and been workup for gastric sleeve surgery. Patient wished to explore less invasive treatment for weight before going through bariatric surgery. I will order labs that we will evaluate metabolic health, vitamin B12, lipid panels, TSH, A1c. I will also order vitamin D levels. I advised patient to contact insurance company to find out if they cover Wegovy or Zepbound for weight management. If insurance cover 1 of these medications I advised patient to schedule appointment to follow-up to discuss in detail the pros and cons of these medications. At this appointment we will also discuss exercise plan and dietary plan. Orders: Lipid panel with reflex to direct LDL; Future Thyroid stimulating hormone with reflex to free t4 and free t3; Future Vitamin B12; Future Vitamin D 25 hydroxy; Future CBC and differential; Future Hemoglobin A1c; Future Iron deficiency 10/24/2023 Encounters Date Type Department Care Team Description 06/03/2025 3:00 PM EDT Office Visit Adult Medicine [address] [phone] Valentina George MD Iron deficiency (Primary Dx); Hypothyroidism, unspecified type; Eye twitch 05/27/2025 9:30 AM EDT Office Visit [facility] Hematology Oncology [address] [place] [phone] Tiffany Neely DO Iron deficiency (Primary Dx) 05/20/2025 7:30 AM EDT Office Visit Adult Medicine [address] [phone] Earl Matamoros NP Chronic idiopathic constipation (Primary Dx); Iron deficiency; Need for hepatitis C screening test 05/20/2025 Results Follow-Up Adult Medicine [address] [phone] Earl Matamoros NP 05/01/2025 Telephone Adult Medicine [address] [phone] Valentina George MD from Last 3 Months Family History Relation Name Status Comments Father Alive Mother Alive Social History Tobacco Use Types Packs/Day Years Used Date Smoking Tobacco: Never Smokeless Tobacco: Never Tobacco Cessation:Counseling Given: Not Answered Alcohol Use Standard Drinks/Week Comments Not Currently [...] care for your loved ones. For example, children's choir director or elderly care for an older adult? [...] on file Sexual Orientation Not on file Obstetrics History Last Filed Vital Signs Vital Sign Reading Time Taken Comments Blood Pressure 100/78 06/03/2025 2:54 PM EDT Pulse 72 06/03/2025 2:54 PM EDT Temperature 36.6 C (97.8 F) 06/03/2025 2:54 PM EDT Respiratory Rate 14 06/03/2025 2:54 PM EDT Oxygen Saturation 100% 05/27/2025 9:36 AM EDT Inhaled Oxygen Concentration - - Weight 130 kg (287 lb 1.6 oz) 06/03/2025 2:54 PM EDT Height 162.6 cm (5' 4 ) 06/03/2025 2:54 PM EDT Body Mass Index 49.28 06/03/2025 2:54 PM EDT Plan of Treatment Upcoming Encounters Date Type Department Care Team (Late st Contact Info) Description 12/08/2025 3:20 PM EDT Consult Gastroenterology - [address] [place] [phone] Liz Rodas PA [address] [facility] [address] [place] [address] Health Maintenance Due Date Last Done Comments Cervical Cancer Screening: Pap Smear 2019 Influenza Vaccine (#1) 2025 05/10/2015 Social Influencers of Health Screening 05/20/2026 05/20/2025 Cholesterol Screening (Lipid Panel) 10/01/2029 10/01/2024 DTaP,Tdap,and Td Vaccines (9 - Td or Tdap) 10/25/2032 10/25/2022, 06/14/2015, 08/25/2013, Additional history exists RSV Immunization Adult Patients (1 - 1-dose 75+ series) 2073 HIB Vaccines Completed 01/18/2000, 01/04, 1998, Additional history exists MMR Vaccines Completed 03/17/2002, 01/18/2000 IPV Vaccines Completed 03/17/2012, 01/04, 1998, Additional history exists HPV Vaccines Completed 08/25/2013, 01/06/2010 Meningococcal ACWY Vaccine Aged Out 08/25/2013, No longer eligible based on patient's age to complete this topic Varicella Vaccines Completed 08/25/2013, 06/08/2000 Hepatitis A Vaccines Completed 02/16/2017, 07/17/20 16 COVID-19 Vaccine Discontinued 04/10/2021, 03/20/2021 Hepatitis B Vaccines Completed 12/28/2021, 1998, 1998, Additional history exists HIV Screening Addressed 05/28/2023 Overridden wit h the intention of not completing the topic Depression Screening Completed 10/07/2024 Hepatitis C Screening Completed 05/20/2025 Meningococcal B Vaccine Aged Out No l onger eligible based on patient's age to complete this topic Pneumococcal Vaccine: Pediatrics (0 to 5 Years) and At-Risk Patients (6 to 49 Years) Aged Out No longer eligible based on patient's age to complete this topic RSV Immunization Patients Under 20 months Aged Out No longer eligible based on patient's age to complete this topic Procedures Procedure Name Priority Date/Time Associated Diagnosis Comments CBC WITH AUTO DIFFERENTIAL Routine 05/20/2025 8:14 AM EDT Chronic idiopathic constipation CBC AND DIFFERENTIAL Routine 05/20/2025 8:14 AM EDT Chronic idiopathic constipation IRON AND TIBC Routine 05/20/2025 8:14 AM EDT Chronic idiopathic constipation FERRITIN Routine 05/20/2025 8:14 AM EDT Chronic idiopathic constipation HEPATITIS C ANTIBODY Routine 05/20/2025 8:14 AM EDT Need for hepatitis C screening test LIPID PANEL WITH REFLEX TO DIRECT LDL Routine 10/01/2024 4:15 PM EST Encounter for screening for cardiovascular disorders from Last 3 Months or Most Recently Relevant to Health Maintenance Results * Hepatitis C antibody (05/20/2025 8:14 AM EDT) [facility] Hepatitis C Antibody Negative Negative LAB CHEMISTRY METHOD 05/20/2025 12:01 PM EDT [facility] Blood Venous blood specimen / Unknown Venipuncture / Unknown 05/20/2025 8:14 AM EDT 05/20/2025 8:14 AM EDT us Earl Matamoros UNIT CONTROLLER LAB BLOOD ORDERABLES Final R esult [facility] [address] [place] [address], * (ABNORMAL) CBC auto differential (05/20/2025 8:14 AM EDT) Pathologist [facility] WBC 11.4(H) 4.8 - 10.8 K/[facility] LAB HEMETOLOGY METHOD 05/20/2025 10:08 AM EDT [facility] RBC 5.10(H) 3.80 - 4.80 M/[facility] LAB HEMETOLOGY METHOD 05/20/2025 10:[address] [facility] Hemoglobin 13.2 11.5 - 16.0 g/dL LAB HEMETOLOGY METHOD 05/20/2025 10:[address] [facility] Hematocrit 41.4 35.0 - 47.0 % LAB HEMETOLOGY METHOD 05/20/2025 10:[address] [facility] MCV 80.5 79.0 - 98.0 FL LAB HEMETOLOGY METHOD 05/20/2025 10:[address] [facility] MCH 25.7(L) 27.0 - 32.0 pcg LAB HEMETOLOGY METHOD 05/20/2025 10:[address] [facility] MCHC 31.9(L) 32.0 - 37.0 g/dL LAB HEMETOLOGY METHOD 05/20/2025 10:[address] [facility] RDW 13.2 11.0 - 15.0 % LAB HEMETOLOGY METHOD 05/20/2025 10:[address] [facility] Platelets 373 130 - 400 K/mcL LAB HEMETOLOGY METHOD 05/20/2025 10:[address] [facility] MPV 9.4 7.0 - 11.0 FL LAB HEMETOLOGY METHOD 05/20/2025 10:[address] [facility] NRBC 0.0 <1.0 % LAB HEMETOLOGY METHOD 05/20/2025 10:[address] [facility] NRBC Absolute 0.00 <0.10 K/mcL LAB HEMETOLOGY METHOD 05/20/2025 10:[address] [facility] Neutrophils Relative 69.6 % LAB HEMETOLOGY METHOD 05/20/2025 10:[address] [facility] Lymphocytes Relative 22.2 % LAB HEMETOLOGY METHOD 05/20/2025 10:[address] [facility] Monocytes Relative 5.6 % LAB HEMETOLOGY METHOD 05/20/2025 10:08 AM EDT [facility] Eosinophils Relative 1.5 % LAB HEMETOLOGY METHOD 05/20/2025 10:08 AM T [facility] Basophils Relative 0.7 % LAB HEMETOLOGY METHOD 05/20/2025 10:08 AM EDT [facility] Immature Granulocytes Relative 0.4 % LAB HEMETOLOGY METHOD 05/20/2025 10:08 AM EDT [facility] Neutrophils Absolute 7.94(H) 1.50 - 7.00 K/mcL LAB HEMETOLOGY METHOD 05/20/2025 10:[address] [facility] Lymphocytes Absolute 2.53 1.00 - 5.00 K/mcL LAB HEMETOLOGY METHOD 05/20/2025 10:[address] [facility] Monocytes Absolute 0.64 0.20 - 1.00 K/mcL LAB HEMETOLOGY METHOD 05/20/2025 10:[address] [facility] Eosinophils Absolute 0.17 0.00 - 0.50 K/mcL LAB HEMETOLOGY METHOD 05/20/2025 10:[address] [facility] Basophils Absolute 0.08 0.00 - 0.20 K/mcL LAB HEMETOLOGY METHOD 05/20/2025 10:[address] [facility] Immature Granulocytes Absolute 0.04(H) 0.00 - 0.03 K/mcL LAB HEMETOLOGY METHOD 05/20/2025 10:[address] [facility] Blood Venous blood specimen / Unknown Venipuncture / Unknown 05/20/2025 8:14 AM EDT 05/20/2025 8:14 AM EDT us Earl Matamoros UNIT CONTROLLER LAB BLOOD ORDERABLES Final R esult [facility] [address] [place] [address], [place] [phone] * (ABNORMAL) Iron and TIBC (05/20/2025 8:14 AM EDT) [facility] Iron 47 40 - 150 mcg/dL LAB CHEMISTRY METHOD 05/20/2025 10:48 AM EDT [facility] TIBC 338 250 - 450 mcg/dL LAB CHEMISTRY METHOD 05/20/2025 10:48 AM EDT [facility] Iron Saturation 14(L) 15 - 50 % LAB CHEMISTRY METHOD 05/20/2025 10:48 AM EDT [facility] Blood Venous blood specimen / Unknown Venipuncture / Unknown 05/20/2025 8:14 AM EDT 05/20/2025 8:14 AM EDT Earl Matamoros UNIT CONTROLLER LAB BLOOD ORDERABLES Final R esult Performing Organization Address City/[facility]/ZIP Co de Phone Number [facility] [address] [place] [address], [place] [phone] * Ferritin (05/20/2025 8:14 AM EDT) [facility] Ferritin 111 8 - 252 ng/mL LAB CHEMISTRY METHOD 05/20/2025 10:48 AM EDT [facility] Blood Venous blood specimen / Unknown Venipuncture / Unknown 05/20/2025 8:14 AM EDT 05/20/2025 8:14 AM EDT Earl Matamoros UNIT CONTROLLER LAB BLOOD ORDERABLES Final R esult [facility] [address] [place] [address], [place] [phone] * (ABNORMAL) Lipid panel with reflex to direct LDL (10/01/2024 4:15 PM EST) Cholesterol 168 0 - 200 mg/dL LAB CHEMISTRY METHOD 10/01/2024 7:30 PM EST [facility] Triglycerides 225(H) 0 - 150 mg/dL LAB CHEMISTRY METHOD 10/01/2024 7:30 PM [facility] HDL 31(L) >=40 mg/dL LAB CHEMISTRY METHOD 10/01/2024 7:30 PM [facility] LDL Calculated 92 0 - 100 mg/dL LAB CHEMISTRY METHOD 10/01/2024 7:30 PM EST [facility] VLDL Cholesterol Guillaume 45 mg/dL LAB CHEMISTRY METHOD 10/01/2024 7:30 PM [facility] Non HDL Chol. (LDL+VLDL) 137 <145 mg/dL LAB CHEMISTRY METHOD 10/01/2024 7:30 PM [facility] Chol/HDL Ratio 5.4(H) 0.0 - 4.4 LAB CHEMISTRY METHOD 10/01/2024 7:30 PM [facility] Blood Venous blood specimen / Unknown Venipuncture / Unknown 10/01/2024 4:15 PM EST 10/01/2024 4:15 PM EST Earl Matamoros NP LAB BLOOD ORDERABLES Final R esult [facility] [address] [place] [address], from Last 3 Months or Most Recently Relevant to Health Maintenance Insurance [facility] [employer] Care Teams Recreational Facilities Motel Manager Relationship Specialty Start Date End Date Valentina George MD [address] [place] [address] PCP - General Internal Medicine 09/19/21
--- OUTSIDE RECORDS SUMMARY | 2025-06-14 19:48 | XMS_ITS ---
Author Name [facility] Organization Unknown Care Team Organization Name Specialty Phone Email Start Date End Da te [facility] Primary [facility] 06/13/2022 03/24/2024
--- OUTSIDE RECORDS SUMMARY | 2025-06-14 19:48 | XMS_ITS | Clinical Summary ---
Author Organization [employer] Address [address] [place] [address] Care Team Providers Care Shearer Screen Measurer And Trimmer Name Role Phone Unavailable Primary Care Provider Unavailabl e Allergies No known active allergies Medications levothyroxine (Synthroid, Levoxyl) 100 MCG tablet Take 100 mcg by mouth in the morning. 3 Active hydrOXYzine HCl (Atarax) 25 MG tablet Take 25 mg by mouth at bedtime. 3 Active levothyroxine (Synthroid, Levoxyl) 50 MCG tablet Take 50 mcg by mouth in the morning. 3 Active acetaminophen (Tylenol 8 Hour) 650 MG ER tablet Take 1 tablet (650 mg) by mouth every 8 (eight) hours if needed for mild pain. Do not crush, chew, or split. 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 Dental caries 03/30/2025 Assessment & Plan (03/30/2025 9:47 AM EDT): Orders: ORAL HYGIENE INSTRUCTIONS; Future CASE PRESENTATION, DETAILED AND EXTENSIVE TREATMENT PLANNING; Future BITEWINGS - 4 RADIOGRAPHIC IMAGES; Future INTRAORAL - PERIAPICAL FIRST RADIOGRAPHIC IMAGE; Future INTRAORAL - PERIAPICAL EACH ADDITIONAL RADIOGRAPHIC IMAGE; Future 4,5 INTRAORAL - PERIAPICAL EACH ADDITIONAL RADIOGRAPHIC IMAGE; Future Dental abscess 03/30/2025 Assessment & Plan (03/30/2025 9:47 AM EDT): Orders: ORAL HYGIENE INSTRUCTIONS; Future CASE PRESENTATION, DETAILED AND EXTENSIVE TREATMENT PLANNING; Future BITEWINGS - 4 RADIOGRAPHIC IMAGES; Future INTRAORAL - PERIAPICAL FIRST RADIOGRAPHIC IMAGE; Future INTRAORAL - PERIAPICAL EACH ADDITIONAL RADIOGRAPHIC IMAGE; Future 4,5 INTRAORAL - PERIAPICAL EACH ADDITIONAL RADIOGRAPHIC IMAGE; Future Dental calculus 03/30/2025 Assessment & Plan (03/30/2025 9:47 AM EDT): Orders: PROPHYLAXIS - ADULT; Future ORAL HYGIENE INSTRUCTIONS; Future CASE PRESENTATION, DETAILED AND EXTENSIVE TREATMENT PLANNING; Future BITEWINGS - 4 RADIOGRAPHIC IMAGES; Future INTRAORAL - PERIAPICAL FIRST RADIOGRAPHIC IMAGE; Future INTRAORAL - PERIAPICAL EACH ADDITIONAL RADIOGRAPHIC IMAGE; Future 4,5 INTRAORAL - PERIAPICAL EACH ADDITIONAL RADIOGRAPHIC IMAGE; Future Dental plaque 06/18/2023 Assessment & Plan (03/30/2025 9:47 AM EDT): Orders: PROPHYLAXIS - ADULT; Future ORAL HYGIENE INSTRUCTIONS; Future CASE PRESENTATION, DETAILED AND EXTENSIVE TREATMENT PLANNING; Future BITEWINGS - 4 RADIOGRAPHIC IMAGES; Future INTRAORAL - PERIAPICAL FIRST RADIOGRAPHIC IMAGE; Future INTRAORAL - PERIAPICAL EACH ADDITIONAL RADIOGRAPHIC IMAGE; Future 4,5 INTRAORAL - PERIAPICAL EACH ADDITIONAL RADIOGRAPHIC IMAGE; Future Encounters Date Type Department Care Team Description 06/10/2025 10:00 AM EST Office Visit [facility] [address] [place] [address] Ghassan Jolley DDS Dental abscess (Primary Dx); Hypercementosis 03/30/2025 9:00 AM EDT Office Visit [facility] [address] [place] [address] Maylin Dow Dental plaque (Primary Dx); Dental caries; Dental abscess; Dental calculus from Last 3 Months Social History Tobacco Use Types Packs/Day Years [...] Don't know 02/09/2023 8: 16 AM EDT Last Filed Vital Signs Vital Sign Reading Time Taken Comments Blood Pressure 122/76 06/10/2025 9:37 AM EST Pulse 68 06/10/2025 9:37 AM EST Temperature - - Respiratory Rate - - Oxygen Saturation - - Inhaled Oxygen Concentration - - Weight - - Height - - Body Mass Index - - Plan of Treatment Upcoming Encounters Date Type Department Care Team (Late st Contact Info) Description 07/22/2025 8:00 AM EST Office Visit [facility] [address], [place] [phone] Ghassan Jolley DDS [address], [place] [phone] 10/02/2025 2:15 PM EST Office Visit [facility] [address], [place] [phone] Maylin Dow [address], [place] [phone] Health Maintenance Due Date Last Done Comments Depression Screening 1998 HIV Screening 1998 Lipid Panel 1998 SDOH Screening 1998 Disability Screening 1998 Alcohol/Substance Use Screening 2010 Family Planning (PISQ) 2013 Hepatitis C Screening 2016 Pap Smear 2019 COVID-19 Vaccine ( season) 2025 04/10/2021, 03/20/2021 Influenza Vaccine (#1) 2025 05/10/2015 Dental Oral Exam 10/01/2025 03/30/2025, 04/17/2023 Dental Prophylaxis 10/01/2025 03/30/2025, 06/18/2023 Dental X-Ray: Bitewings 03/31/2026 03/30/20, 04/17/2023, 02/09/2023 Dental X-Ray: Full Mouth 04/18/2026 04/17/2023 Tobacco Screening 06/10/2026 06/10/2025 DTaP/Tdap/Td Vaccines (9 - Td or Tdap) 10/25/2032 10/25/2022, 06/14/2015, 08/25/2013, Additional history exists Zoster Vaccines (1 of 2) 2048 RSV Patients and Patients Aged 60 years or older (1 - 1-dose 75+ series) 2073 HIB Vaccines Completed 01/18/2000, 09/06, 1998, Additional history exists IPV Vaccines Completed 03/17/2012, 09/06, 1998, Additional history exists HPV Vaccines Completed 08/25/2013, 01/06/2010 Meningococcal Vaccine Aged Out 08/25/2013, 010 No longer eligible based on patient's age to complete this topic Hepatitis A Vaccines Completed 02/16/2017, 07/17/20 16 Hepatitis B Vaccines Completed 12/28/2021, 1998, 1998, Additional history exists Meningococcal B Vaccine Aged Out No l onger eligible based on patient's age to complete this topic Pneumococcal Vaccine: Pediatrics (0 to 5 Years) and At-Risk Patients (6 to 49) Years Aged Out No longer eligible based on patient's age to complete this topic RSV under 20 months Aged Out No longe r eligible based on patient's age to complete this topic Rotavirus Vaccines Aged Out No longer eligible based on patient's age to complete this topic Procedures Procedure Name Priority Date/Time Associated Diagnosis Comments CASE PRESENTATION, DETAILED AND EXTENSIVE TREATMENT PLANNING Routine 06/10/2025 10:00 AM EST 4 EXTRACTION, ERUPTED TOOTH REQ REMOVAL OF BONE AND/OR SECTIONING OF TOOTH Routine 06/10/2025 10:00 AM EST PERIODIC ORAL EVALUATION - ESTABLISHED PATIENT Routine 03/30/2025 9:00 AM EDT 4,5 INTRAORAL - PERIAPICAL EACH ADDITIONAL RADIOGRAPHIC IMAGE Routine 03/30/2025 9:00 AM EDT Dental plaque Dental caries Dental abscess Dental calculus INTRAORAL - PERIAPICAL EACH ADDITIONAL RADIOGRAPHIC IMAGE Routine 03/30/2025 9:00 AM EDT Dental plaque Dental caries Dental abscess Dental calculus INTRAORAL - PERIAPICAL FIRST RADIOGRAPHIC IMAGE Routine 03/30/2025 9:00 AM EDT Dental plaque Dental caries Dental abscess Dental calculus BITEWINGS - 4 RADIOGRAPHIC IMAGES Routine 03/30/2025 9:00 AM EDT Dental plaque Dental caries Dental abscess Dental calculus CASE PRESENTATION, DETAILED AND EXTENSIVE TREATMENT PLANNING Routine 03/30/2025 9:00 AM EDT Dental plaque Dental caries Dental abscess Dental calculus ORAL HYGIENE INSTRUCTIONS Routine 03/30/2025 9:00 AM EDT Dental plaque Dental caries Dental abscess Dental calculus PROPHYLAXIS - ADULT Routine 03/30/2025 9 :00 AM EDT Dental plaque Dental calculus INTRAORAL - COMPLETE SERIES OF RADIOGRAPHIC IMAGES Routine 04/17/2023 9:00 AM EDT Dental caries from Last 3 Months or Most Recently Relevant to Health Maintenance Insurance [facility] MEDICAID STAND ADULT
--- OUTSIDE RECORDS SUMMARY | 2025-06-14 19:48 | XMS_ITS | Clinical Summary ---
Author Organization [employer] [facility] Address [address] [place] [address] Care Team Providers Care Tax Record Clerk Name Role Phone Valentina George MD Primary Care Provider [phone] Allergies No known active allergies Medications Medication Sig Dispensed Refills Start Date End Date Status levothyroxine (SYNTHROID) tablet 50 mcg Take 1 tablet (50 mcg total) by mouth every morning on an empty stomach. 0 Active Active Problems Problem Noted Date Diagnosed Date Iron deficiency 03/17/2024 Family History Relation Name Status Comments Father Alive Mother Alive Social History Tobacco Use Types Packs/Day Years Used Date Smoking Tobacco: Never Smokeless Tobacco: Never Tobacco Cessation:Counseling Given: Not Answered Alcohol Use Standard Drinks/Week Comments Not Currently 0 (1 standard drink = 0.6 oz pur e alcohol) Sex and Gender Information Value Date Recorded Sex Assigned at Not on file Gender Identity Not on file Sexual Orientation Not on file Job Start Date Occupation Industry Not on file Not on file Not on file Last Filed Vital Signs Vital Sign Reading Time Taken Comments Blood Pressure 104/64 04/18/2024 10:15 AM EDT Pulse 92 04/18/2024 10:15 AM EDT Temperature 36.3 C (97.3 F) 04/18/2024 10:15 AM EDT Respiratory Rate 16 04/18/2024 10:1 5 AM EDT Oxygen Saturation 100% 04/18/2024 10: 15 AM EDT Inhaled Oxygen Concentration - - Weight 122.6 kg (270 lb 3.2 oz) 024 11:07 AM EDT Height 162.6 cm (5' 4 ) 03/17/2024 11:0 7 AM EDT Body Mass Index 46.38 03/17/2024 11:07 AM EDT Plan of Treatment Health Maintenance Due Date Last Done Comments Hepatitis C Screening 1998 Depression Screening 2010 BMI Counseling 2016 Preventative Health Evaluation 2016 Cervical Cancer Screening (Pap Smear) 2019 DTap / Tdap / Td (7 - Td or Tdap) 08/25/2023 08/25/2013, 03/17/2002, 01/18/2000, Additional history exists COVID-19 Vaccine ( season) 2025 04/10/2021, 03/20/2021 Influenza Vaccine (#1) 2025 05/10/2015 Hepatitis B Vaccines Completed 1998, 1998, 1998 Pneumococcal Vaccine Aged Out No long er eligible based on patient's age to complete this topic RSV Ped < 20 months Aged Out No longe r eligible based on patient's age to complete this topic Care Teams Tax Record Clerk Relationship Specialty Start Date End Date Valentina George MD PCP - General Internal Medicine 01/15/24
--- NOTE | 2025-06-14 19:55 | ED_ITS ---
HPI - General Adult General Chief complaint: Dental/Oral Stated complaint: upper tooth pain (extracted 06/10) Time Seen by Provider: 06/14/25 19:38 Source: patient Mode of arrival: ambulatory Limitations: no limitations History of Present Illness ED Provider: Adan Herman HPI narrative: 25-year-old female presents to ED for right upper molar pain. Patient is status post right upper molar tooth extraction that occured this past sunday. Patient denies any facial swelling, drooling, change in voice, neck swelling, fever, chills, chest pain or shortness of breath. Related Data Previous Rx's ?Medication ?Instructions ?Recorded ondansetron 4 mg disintegrating 4 mg PO Q6H PRN nausea and 08/04/21 tablet vomiting #10 tabs dicyclomine 20 mg tablet 20 mg PO TID PRN abdominal 0 10/04/21 discomfort #30 tabs ondansetron 4 mg disintegrating 4 mg PO Q8H PRN nausea and 10/04/21 tablet vomiting #20 tabs famotidine 40 mg tablet (Pepcid) 40 mg PO DAILY #3 tab s 03/02/23 hydroxyzine HCl 25 mg tablet 25 mg PO BID PRN itching #7 tabs 03/02/23 prednisone 50 mg tablet 50 mg PO DAILY #3 tabs 03/02 Allergies Allergy/AdvReac Type Severity Reaction Status Date / Time No Known Allergies (No Known Allergy Verified 06/14/25 18:37 Allergies*) Review of Systems 2 Review of Systems: Post tooth extraction Yes all other systems are reviewed and are negative [facility] Past Medical History Medical History Anemia PCOS (polycystic ovarian syndrome) Surgical History H/O dilation and curettage Social History Social History (Updated 10/04/21 @ 11:06 by Oanh Troy DO) Alcohol intake: never Patient Tobacco Use Status: Never used Tobacco Advance Directives: No Advance Directives Information Provided: Yes Do you have a plan to hurt others: No Plan Physical Exam ED Vital Signs: Vital Signs - 24 hr 06/14/25 18:35 06/14/25 20:20 Temperature 98 F 98 F Pulse Rate 80 80 Respiratory Rate 18 18 Blood Pressure 126/68 126/68 Pulse Oximetry 98 98 Oxygen Delivery Method Room Air Room Air BMI result Body Mass Index 48.1 Const General: cooperative, healthy appearing, comfortable, no acute distress, well developed, alert, awake and Physically active Orientation/consciousness: patient oriented x3 HENMT Other: Negative for facial swelling, drooling, or neck swelling. Negative for swelling of the floor of tongue. Head: Yes normal to inspection, Yes No palpable skull fracture present, Yes normocephalic and Yes atraumatic Ears: hearing grossly normal bilaterally, external ears normal, TM's normal bilaterally, TM normal on the right, TM normal on the left, EAC's normal, mastoids normal and no periauricular adenopathy Teeth image: 2 1. tooth extraction site negative for erythema, swelling, pus collection/discharge, gum swelling, or trismus. Rest of oral exam is normal Throat: Yes posterior oropharynx normal, Yes tonsils normal and Yes uvula midline Eyes General: appearance normal, both eyes and all related structures Neck Neck: Yes normal visual inspection, Yes full ROM, Yes no lymphadenopathy, Yes no meningeal signs, Yes trachea midline, Yes supple, No anterior neck swelling and No tender Chest Chest palpation & inspection: normal inspection of the chest and normal palpation of entire chest wall Resp Effort & Inspection: normal respiratory effort and able to speak in complete sentences Auscultation: clear to auscultation bilaterally Cardio Jugular venous distension: no JVD Heart sounds: S1 normal heart sound present and S2 normal heart sound present GI Inspection: Yes normal to inspection Palpation (GI): Soft to palpation, not firm, nontender, no guarding and not rigid General: Yes no CVA tenderness Back/Spine/Pelvis Back: no CVA tenderness and No back tenderness Skin General skin exam: no rashes or lesions noted, elasticity normal and turgor normal Neuro General: patient oriented x3, gait normal, tone normal, moves all extremities, Normal light touch and pain sensation, no meningeal signs, no focal motor deficits, CN's II-XI intact bilaterally and normal sensation to monofilament Extrem General: Yes normal to inspection, Yes full ROM and Yes capillary refill normal Psych Appearance: grossly normal, well kempt and not disheveled Medications Administered Discontinued Medications Generic Name Dose Route Start Last Admin Trade Name Freq PRN Reason Stop Dose Admin Ketorolac Tromethamine 15 mg 06/14/25 19:38 06/14/25 20:20 Ketorolac Tromethamine 15 Mg/Ml Vial IM 06/14/25 19:39 15 mg ONCE ONE Administration Medical Decision Making Medical Decision Making MDM Narrative: 25 year female presents to ED for status post tooth extraction pain. Negative for pus collection, swelling, redness, facial swelling, neck swelling, headahce, or change in voice. Not suspecting Sharan's angina, retropharyngeal abscess, peritonsillar abscess,trismus, or any other life threatening etiology. Patient explained worrisome signs and informed to return to the ED immeieatley. . Differential Diagnosis Differential Diagnoses: The differential diagnosis associated with the presentation includes (Tooth infection dental) Admission/Observation Consideration of admission/observation: Escalation of care including admission/observation considered Independent Historian Clinical information obtained from an independent historian. History obtained from or confirmed by: Other (Patient) Prescription Management I considered prescription management with: Pain Medication Discharge Plan Discharge Clinical Impression: Toothache, S/P tooth extraction Patient Disposition: Home, Self-Care Instructions: Toothache (ED), Dry Socket (ED), Tooth Extraction (DC) Additional Instructions: Recommend follow-up with your dentist. Return to the ED for any facial swelling, drooling, change in voice, neck swelling, chest pain, shortness of breath, severe pain, or any other concerning symptoms. Continue taking [id number] Tylenol/Motrin for pain relief. Avoid extreme cold hot food. Rinse your mouth gently with warm salt water couple times per day. Prescriptions: No Action ondansetron 4 mg tablet,disintegrating 4 mg PO Q8H PRN (Reason: nausea and vomiting) Qty: 20 0RF dicyclomine 20 mg tablet 20 mg PO TID PRN (Reason: abdominal discomfort) Qty: 30 0RF ondansetron 4 mg tablet,disintegrating 4 mg PO Q6H PRN (Reason: nausea and vomiting) Qty: 10 0RF prednisone 50 mg tablet 50 mg PO DAILY Qty: 3 0RF famotidine [Pepcid] 40 mg tablet 40 mg PO DAILY Qty: 3 0RF hydroxyzine HCl 25 mg tablet 25 mg PO BID PRN (Reason: itching) Qty: 7 0RF Stand Alone Forms: Work/School Release Interventions: ED Discharge Assessment Last Done: 06/14/25 20:20 Discharge Date/Time: 06/14/25 20:20 Print Language: Guatemalan
[2025-06-14 20:20] VITALS: BP 126/68; PULSE 80; RESP 18; TEMP 36.6; O2SAT 98
== END 2025-06-14 20:20 | disposition home or self-care (01) ==
PROVIDERS: Emergency Provider Emergency Medicine; PCP Internal Medicine
DX: K08.89 Other specified disorders of teeth and supporting structures (principal)
CPT/HCPCS: 96372; 99283; 99284; J1885

== ENCOUNTER 2025-07-17 08:25 | Outpatient (AMB) | payer OTHER, SELFPAY ==
--- NOTE | 2025-07-17 11:33 | MHC.OFFVISWM ---
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 BMI 48.7 Allergies No Known Allergies (No Known Allergies*) Allergy (Verified 07/17/25 11:33) Medication List - Last Reconciled 07/17/25 by Chico Marshall MD No Known Home Meds HPI HPI TV UPPER MARKER SWL/MWL BMI 48.7: Details: Start time: 11.30am, End time: 12.01pm ?I spent 26 minutes speaking with the patient on the phone plus an additional 5 minutes reviewing and updating records for a total of 31 minutes HPI Comments Details: Previous weight loss efforts: Nutritonist, self diet and exercise Wakes up: 8am, Sleeps: 10pm Breakfast: 9am (scrambled eggs, bey, toast) Lunch: skips Dinner: 5pm (rice, beans, meat) Snacks: 2 snacks before dinner (jello, chips), after dinner (milk) Exercise: none Beverages: Coffee Latte (2 cups/d), Tea: none, Soda: regular Coke (2/wk), Juice: none, ETOH: none PFSH Medical History (Updated 07/17/25 @ 11:34 by Chico Marshall MD) Morbid obesity PCOS (polycystic ovarian syndrome) Anemia Surgical History (Updated 06/15/25 @ 00:00 by Marcel Giron) H/O dilation and curettage Family History (Updated 06/24/25 @ 10:15 by Marva Limon CMA) Father Diabetes Hypertension Maternal Grandfather Diabetes Paternal Grandfather Diabetes Social History (Updated 06/24/25 @ 10:15 by Marva Limon CMA) Alcohol intake: current Alcohol intake frequency: holidays/special occasions only Patient Tobacco Use Status: Never used Tobacco Telehealth Telehealth Telehealth Platform: Telephone Location of provider rendering services: practice address Location of patient: address on file Patient Identification confirmed using: Name, : Yes Telehealth method: voice only Patient verbally consented to treatment: Yes Patient verbally consented to billing insurance company: Yes Patient informed of any privacy concerns related to visit: Yes Minutes spent on Phone/Video with Pt.: 31 Assessment & Plan Assessment & Plan (1) Morbid obesity: Code(s): E66.01 - Morbid (severe) obesity due to excess calories Category: Medical Plan: 1.?Nutritional counseling. Start with one premade PREMIER protein (buy at [employer] or [employer]) shake (8oz of Premier and NOT the whole bottle) at 9am-11am, one protein bar (Fit Crunch protein bar, buy at [employer], or [employer]) at 12pm-2pm, another premade PREMIER protein shake (8oz of Premier and NOT the whole bottle) at 3pm-5pm,?dinner at 6pm (10 forks of protein and 10 forks of salad/vegetables) at 6pm and one more Fit Crunch protein bar at 8pm-10pm. So you do 2 protein shakes, 2 protein bars and one meal per day. Meal to include lean meat (beef, fish, pork, turkey, chicken), or arabic yogurt, or egg whites, or beans with a salad with olive oil and fruits (berries, pears, apples, kiwi). Avoid salt, breads, potatoes, rice, pasta, desserts. 3. Each shake would be drunk slowly, like coffee in a period of 2 hours. 4. Cut each bar in 4 pieces and eat each piece in 30min ?to make each bar last 2 hours. 5. I emphasized the importance of measuring accurately the food portion and measure it when serving the food in plate 6. The meal portions include 10 full-size forks of meat and 10 full-size forks of salad. You always eat the meat portion but you can replace up to 5 forks for salad/vegetables with rice, potatoes or pasta, or a fruit ?if you like. The less you do it the better weight loss will be. 7. One full-size fork is what it can be scooped on the fork without falling aside and not what can be bit with the fork. Use regular forks like those you find in a typical restaurant. 8.? Please buy the body composition scale we discussed and send me weight measurements as soon as possible and then once a week. Always include your diet and exercise plan. 9. The best choice would be to purchase a stationary bike at home that can track calories. If you get one, please start stationary bike at a resistance level of 4.0 Increase level by 1.0 every 3 min to a max level of 10.0. Stay at this level for 3 min and then return to level 4.0 and repeat same steps until 300 calories are burned. Goal is to burn 2000 calories per week on exercise 10.?It is important of avoiding and while on Zepbound and has been discussed at the infosession. 11. I ordered a medication to help you with the weight loss which is called Zepbound. My office will try to authorize it. Please let me know when you receive it so I can give you a meal and exercise plan. Common side effects include nausea, vomiting, constipation, diarrhea, abdominal pain. Please let me know if you develop any of these symptoms. 12. Goal is to lose at least 1.5-2lbs per week 13. Goal to lose at least 10% of your weight, which is about 33lbs. Ultimate weight goal: 250lbs before surgery 14. Please follow the diet plan exactly without any change. If you don't like something about the plan or you feel hungry you need to communicate with me so I can help you revise the plan. You should not change the plan yourself
[2025-07-17 11:39] VITALS: BMI 48.6
== END 2025-07-17 12:02 | disposition home or self-care (01) ==
LOC: HO.HBS 08:25
PROVIDERS: PCP Internal Medicine; Visit Provider Surgery
DX: E66.01 Morbid (severe) obesity due to excess calories (principal)
CPT/HCPCS: 99203